=== PATIENT | female | born 1980 | race Caucasian/White ===

== ENCOUNTER 2018-01-04 09:09 | Inpatient (IN) | payer MEDICARE, MEDICAID ==
[~2018-01-04] VITALS: Ht 160 cm; Wt 102.1 kg
[~2018-01-04 09:09] MED LIST: ADULT LOW DOSE81 MG PO; ATIVAN1 MG PO; ATORVASTATIN CA40 MG PO; EFFIENT10 MG PO; FISH OIL 1,0001 EACH PO; FISH OIL 1,001000 M2 PO; IMDUR 60 MG TAB60 M1 PO; LASIX 20 MG TAB20 MG PO; LIPITOR10 MG PO; LISINOPRIL-HCT1 EAC1 PO; LISINOPRIL2.5 M1 PO; LISINOPRIL2.5 MG PO; LOPRESSOR25 PO; METFORMIN HCL500 MG PO; NITROGLYCERIN0.4 MG SUBLING; PRAZOSIN 1 MG CA1 M1 PO; PROZAC20 MG PO; RANEXA1000 MG PO; RANEXA500 MG PO; TOPROL XL25 MG PO; TYLENOL EXTRA500 MG PO; VENTOLIN HFA 1818 GM INH; WOMENS STOOL S100 MG PO; ZESTORETIC 20-1 EACH PO; ZETIA10 MG PO; ZOLOFT50 MG PO
[2018-01-04 11:30] VITALS: BP 101/66
[2018-01-04] MEDS ORDERED: BUSPIRONE HCL10 MG PO (11:55)
[2018-01-04] MEDS ORDERED: CARDIZEM CD120 MG PO (11:56)
[2018-01-04] MEDS ORDERED: CLONAZEPAM 0.50.5 M1 PO (11:56)
[2018-01-04] MEDS ORDERED: LEXAPRO5 MG PO (11:57)
[2018-01-04] MEDS ORDERED: RANEXA500 MG PO (11:58)
[2018-01-04] MEDS ORDERED: OMEPRAZOLE40 MG PO (11:58)
--- NOTE | 2018-01-04 15:32 | NUR ---
PT. ARRIVED AT 1130 VIA AMBULANCE. PT A/OX4, VSS, MONITOR PLACED TRACING SB. PT. DENIES CURRENT PAIN/SOB/N/V. ON RA @ 99%. FULL ASSESSMENT AND ADMISSION PROCESS COMPLETED. DR. SHAH UP TO UNIT TO SEE PT. HOME MED REC. COMPLETED. PT. ORIENTED TO ROOM/PROCEDURES. CALL LIGHT IN REACH, WILL CONTINUE WITH PLAN OF CARE.
[2018-01-04 16:24] VITALS: BP 97/61
--- NOTE | 2018-01-04 16:25 | NUR ---
AT APPROX. 1550 PT. REPORTED CP 10/12. BLOOD PRESSURE 97/61 (UNABLE TO GIVEN NITRO). EKG OBTAINED, WITH NO CHANGES NOTED. DR. PABLO LIN [facility], AWAITING CALL BACK.
--- NOTE | 2018-01-04 19:42 | NUR ---
PT C/O CHEST PAIN X [address] SHAH NOTIFIED AND NEW ORDERS RECEIVED. PAIN WAS ALEVIATED BY IV MORPHINE. PT. HAS REMAINED IN SR. HOURLY ROUNDING COMPLETED THROUGH OUT THE DAY FOR PT. SAFETY.
[2018-01-04 20:00] VITALS: BP 105/59
[2018-01-05] VITALS: BP 109/48
[2018-01-05 04:00] VITALS: BP 111/52
--- NOTE | 2018-01-05 05:41 | NUR ---
PATIENT RESTED IN BED, NO ACUTE CHANGES. PATIENT DID NOT SHOW SIGNS OF DISTRESS. PATIENT DID NOT COMPAIN OF CHEST PAIN. HOURLY ROUNDING OBSERVED, CALL LIGHT WITHIN REACH.
[2018-01-05 08:30] VITALS: BP 111/57
--- NOTE | 2018-01-05 09:01 | NUR ---
ASSUMED PT. CARE AND RECEIVED REPORT AT 0730. PT A/OX4, VSS, MONITOR ON TRACING SB. PT. DENIES CURRENT PAIN/SOB. STATES SHE HAD AN UNEVENTFUL EVENING AND SLEPT WELL. CALL LIGHT IN REACH, WILL CONTINUE WITH PLAN OF CARE.
[2018-01-05 12:05] VITALS: BP 136/68
--- NOTE | 2018-01-05 14:46 | EKG ---
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 : 1980 Requested By: Pepe Gottlieb Order Number: [id number] Reading MD: Pepe Gottlieb Measurements Intervals [place] Rate: 56 P: 33 [place]: 151 QRS: -3 QRSD: 108 T: 36 QT: 443 QTc: 428 Interpretive Statements Sinus bradycardia Abnormal R-wave progression, early transition Probable left ventricular hypertrophy Compared to ECG 06/13/2017 03:03:22 No significant changes Electronically Signed On 01-05-2018 14:46:37 CDT by Pepe Gottlieb [email or web address] <ELECTRONICALLY SIGNED> By: Pepe Gottlieb MD, [facility] 01/05/18 1446 1552 1552 Pepe Gottlieb MD, [facility] /EPI
[2018-01-05 16:05] VITALS: BP 93/42
--- NOTE | 2018-01-05 16:18 | H ---
[place] [address] HISTORY AND PHYSICAL Name: GEORGE JUAREZ Room: [address] ADM IN M.R.#: [id number] Admission: 01/04/18 Attend Phys: Pepe Gottlieb MD, F Discharge: Date of : 82 Report #: [id number] THIS REPORT FOR: //name// CC: Pepe Gottlieb [facility] physician/PCP DATE OF SERVICE: 01/04/2018 HISTORY OF PRESENT ILLNESS: The patient is a 37-year-old single white female who I was asked to see in the hospital today after she complained of palpitations. The patient has an extensive past medical history. She has had cardiac complaints since she was in her 20s. The patient apparently was diagnosed with a cardiomyopathy years ago. She also has a history of a rapid heartbeat. She has worn a monitor in the past. She does note on one occasion, she was given adenosine in the Emergency Room in [place], [place] and the monitor to her was actually given by a anthropologist at [place]. Recently, she notes only occasional skipped heartbeat, but no prolonged palpitations, syncope. She is not very active at this time. She also has a history of coronary artery disease. Dr. Brown actually saw her back in 04/2014. She was found to have a 90% narrowing of the mid LAD, 70% ostial narrowing of the ramus branch, 90% narrowing in the nondominant right coronary artery. It is felt that she should be considered for bypass surgery. However, the patient was transferred to [facility] and decided to perform stenting rather than bypass surgery. The patient was readmitted in 04/2015 with chest pain. She had had stents placed in the proximal and mid LAD, in the ostium of the LAD and placed on Effient. Ejection fraction was normal. Repeat heart catheterization in 07/2014 showed the stent to be widely patent. The right coronary was nondominant, had a 90% mid stenosis and medical therapy was recommended. Her last heart catheterization was in 06/2017. This was performed by Dr. Menezes. An Angio-Seal was placed at the end of the procedure. She was found to have diffuse disease in the LAD, circumflex as well as a stenosis of the nondominant right coronary artery, ejection fraction 65%. She underwent FFR of the LAD, which is only 0.61. She then had an additional drug-eluting stent placed in the LAD. She actually had 3 stents placed in the LAD. Recently, she has been having occasional chest pain. It is not necessarily related to meals or exertion. She actually went to the Emergency Room last night in [place] and was admitted overnight. Today, she was transferred to [place] for further evaluation. She does get short of breath with exertion. She has had no significant edema. She has had no fever or bleeding. PAST MEDICAL HISTORY: Significant for carpal tunnel surgery, . She has had a uterine ablation, so she no longer has periods. She has a history of hypertension, diabetes, hyperlipidemia. MEDICATIONS: Consist of aspirin, Lipitor, BuSpar, clonazepam, Lexapro, Zetia, Imdur, metformin, omeprazole, Effient, Ranexa, [place] [address] HISTORY AND PHYSICAL Name: GEORGE JUAREZ Room: [address] IN M.R.#: [id number] Admission: 01/04/18 Attend Phys: Pepe Gottlieb MD, F Discharge: Date of : 82 Report #: [id number] ALLERGIES: SHE HAS A PREVIOUS INTOLERANCE TO PHENERGAN. FAMILY HISTORY: Her father had a pacemaker. SOCIAL HISTORY: She is currently engaged. She lives in [place], [place] with her ance and children. She quit smoking in the past. She no longer drinks alcohol at this time. She is no longer working at this time because of heart disease. REVIEW OF SYSTEMS: She was told she had a TIA in the past. She has had a history of asthma as a child. She has had no history of peptic ulcer disease, liver disease, kidney disease, or cancer. She sees a psychiatrist. No chronic skin condition. PHYSICAL EXAMINATION: GENERAL: Revealed a middle-aged female who appeared in no distress. VITAL SIGNS: She had a blood pressure of 110/70, pulse 70. HEENT: Mucous membranes are moist. NECK: Veins do not appear distended. No carotid bruits. HEENT: She was anicteric, conjunctivae pink. NECK: Supple. CHEST: Clear to auscultation. CARDIOVASCULAR: Regular rate and rhythm. ABDOMEN: Obese, soft, nontender. EXTREMITIES: Had no edema. Dorsalis pedis pulse 2+ bilaterally. SKIN: Warm, dry. NEUROLOGIC: Nonfocal. Her workup done in [place], [place] last night included an ECG that showed sinus rhythm without ST or T-wave change. LABORATORY WORK: Included sodium 141, BUN 21, troponin 0.03, cholesterol 123, hemoglobin 12.4. IMPRESSION AND RECOMMENDATIONS: 1. Coronary artery disease. The patient has multiple stents and diffuse coronary artery disease. The patient has occasional angina. I would recommend nuclear stress testing to look for ischemia. 2. Hypertension. Appears controlled at this time. 3. Diabetes. 4. Hyperlipidemia. The patient is on a statin drug. 5. History of bipolar disorder. The patient followed by Psychiatry. [address] [place] [address] HISTORY AND PHYSICAL Name: GEORGE JUAREZ Room: [address] IN [facility].#: [id number] Admission: 01/04/18 Attend Phys: Pepe Gottlieb MD, F Discharge: Date of : 82 Report #: [id number] 6. Previous tobacco abuse. 7. Obesity. The patient is 5 feet 3 inches and weighs 218 pounds. <ELECTRONICALLY SIGNED> By: Pepe Gottlieb MD, [facility] 01/05/18 1618 1211 1318David Casimiro Gottlieb MD, FAC /nt
--- NOTE | 2018-01-05 16:43 | NUR ---
PT. TEARFUL, REQUESTING HER PRN KLONIPIN, DOSE GIVEN EARLY PER REQUEST. PT. STATES BOYFRIEND HAD TO LEAVE FOR WORK, AND SHE IS JUST FINDING IT HARD TO STAY HERE ALONE. WILL CONTINUE TO MONITOR.
--- NOTE | 2018-01-05 19:46 | NUR ---
NO COMPLAINTS OF CP THIS SHIFT. UP AD LIBERTY AND AMBULATED UNIT. NPO STATUS AT MIDNIGHT, PT. AWARE. HOURLY ROUNDING COMPLETED THROUGH OUT THE DAY FOR PT. SAFETY.
[2018-01-05 20:00] VITALS: BP 104/64
[2018-01-06] VITALS (7 sets, daily range): BP systolic 94–149; BP diastolic 41–84
--- NOTE | 2018-01-06 03:23 | NUR ---
PATIENT RESTED IN BED. NO ACUTE CHANGES, PATIENT DID NOT SHOW SIGNS OF DISTRESS. NO COMPLAINTS OF CHEST PAIN, PATIENT IS NPO FOR STRESS TEST. FALL PRECAUTIONS IN PLACE, HOULRY ROUNDING OBSERVED, CALL LIGHT WTIHIN REACH.
--- NOTE | 2018-01-06 08:30 | NUR ---
ASSUMED PT. CARE AND RECEIVED REPORT AT 0730. PT A/OX4, VSS, MONITOR ON TRACING SB. PT. DENIES CP TODAY OR THROUGH THE NIGHT. FULL ASSESSMENT COMPLETED, REFER TO CHARTING. PT. EXPRESSES FRUSTRATION WITH STRESS TESTING TODAY, FEELS LIKE DR. SHAH DID NOT LISTEN TO HER OVER THE WEEKEND. DISCUSSED WITH VANESSA ACOSTA RN, SHE WILL DISCUSS WITH DR. PRAJAPATI. HOLDING OFF ON STRESS TEST AT THIS TIME. CALL LIGHT IN REACH, WILL CONTINUE WITH PLAN OF CARE.
--- NOTE | 2018-01-06 09:30 | NUR ---
DR. PRAJAPATI INTO SEE PT. PLAN TO CONTINUE WITH STRESS TEST TODAY AND PROBABLE CATH TOMORROW. PT. AGREEABLE.
--- NOTE | 2018-01-06 13:42 | NUR ---
MET WITH PT TO DISCUSS HOME SITUATION/DC PLANNING. PT LIVES WITH BLAKE, CHILDREN AND GRANDSON. SHE IS INDEPENDENT AND ACTIVE. USES NO EQUIPMENT. PT DOESN'T HAVE A DR BUT PLANS TO LOOK FOR ONE IN THE [facility], ENCOURAGED HER TO CONTACT THE HOSPITAL THERE. PT ASKED QUESTIONS ABOUT HER MEDICARE, STATED DIDN'T HAVE A CARD AND NOT SURE HOW IT ALL WORKED. GAVE HER WEBSITE AND NUMBER TO CONTACT FOR INFO. DENIES OTHER DC NEEDS. WILL FOLLOW
[2018-01-06 16:57] LABS: CALCIUM 8.6 mg/dL (8.5-10.1); CREATININE 0.8 mg/dL (0.6-1.3); POTASSIUM 4.1 mmol/L (3.5-5.1)
[2018-01-07] VITALS (21 sets, daily range): BP systolic 90–138; BP diastolic 38–76
--- NOTE | 2018-01-07 05:26 | NUR ---
PATIENT RESTING IN BED. NO ACUTE CHANGES, PATIENT DID NOT SHOW SIGNS OF DISTRESS. PATIENT IS NPO FOR CATH. IV ATTEMPTS FAIL FOR 18 GAUDE, CHARGE NURSE NOTIFIED. FALL PRECAUTONS IN PLACE, CALL LIGHT WITHIN REACH, HOURLY ROUNDING OBSERVED.
[2018-01-07 05:59] LABS: APTT 26.2 Seconds (25.0-31.3); PROTIME 9.5 Seconds (9.20-11.50)
[2018-01-07 06:17] LABS: CHOLESTEROL 137 mg/dL (<200); HDL CHOLESTEROL 37 mg/dL (>40); LDL CHOLESTEROL 57 mg/dL (<100); TC:HDL 3.7 Ratio (Not establshd); TRIGLYCERIDE 219 mg/dL (<150); VLDL 44 mg/dL (<40)
[2018-01-07 06:20] LABS: SERUM ASSESSMENT Slight Lipemia
[2018-01-07 06:35] LABS: CALCIUM 8.5 mg/dL (8.5-10.1); CREATININE 0.8 mg/dL (0.6-1.3); POTASSIUM 4.4 mmol/L (3.5-5.1)
--- NOTE | 2018-01-07 11:03 | NUR ---
PATIENT TAKEN OFF UNIT FOR CARDIAC CATH AT THIS TIME.
--- NOTE | 2018-01-07 14:11 | EKG ---
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 01/07/18 1411 1310 1310 Gerber Menezes MD, [facility] /EPI
--- NOTE | 2018-01-07 14:13 | NUR ---
PATIENT RETURNED TO ROOM AT 1400 FROM CARDIAC CATH PROCEDURE. VITAL SIGNS STABLE. CATH SITE LEFT GROIN. DRESSING CLEAN DRY INTACT. SOFT TO PALPATION. PATIENT STATES SITE IS TENDER. HAS BEEN INSTRUCTED TO BE ON BEDREST AND NOT TO MOVE HER LEFT LOWER EXTREMITY FOR 6 HOURS. STATES UNDERSTANDING. NURSING WILL CONTINUE TO MONITOR.
--- NOTE | 2018-01-07 14:38 | CARD ---
[address] [address] CARDIAC CATH REPORT Name: GEORGE JUAREZ Room: 229 ADM IN ..#: [id number] Admission: 01/04/18 Attend Phys: Pepe Gottlieb MD, F Discharge: Date of : 82 Report #: [id number] THIS REPORT FOR: //name// APPROVED REPORT Study performed: 01/07/2018 10:58:43 Patient Details Patient Status: In-Patient Room #: 229 The patient is a 37 year-old female Event Personnel Dr Menezes Procedures Performed Left catheterization left ventriculography and selective coronary arteriography; percutaneous coronary intervention to the mid LAD and first marginal branch of the circumflex Indication Unstable angina , Positive stress test Risk Factors Obesity, Hypercholesterolemia, Diabetes Previous Procedures/Diagnoses Previous PCI Procedure Narrative The patient was brought electively to the Cardiac Catheterization Laboratory and was prepped and draped in a sterile manner. The left femoral was infiltrated with 1% Lidocaine subcutaneous anesthesia. A 6 Lithuanian sheath sheath was inserted into the left femoral artery. Coronary angiography was performed using coronary diagnostic catheters. The right coronary system was accessed and visualized with a Diagnostic catheter. The left coronary system was accessed and visualized with a Diagnostic catheter. The left ventricle was accessed and visualized with a Diagnostic catheter. Left ventricular/Aortic Valve gradient assessed via catheter pullback. Left ventriculogram was performed in BARNETT projection. Pre-demployment femoral angiogram was performed . Closure device was deployed with a 6 Fr Mynx. There was no hematoma. Coronary Angiography The patient's coronary anatomy is left dominant. [address] [address] CARDIAC CATH REPORT Name: GEORGE JUAREZN Room: [address] IN M.R.#: [id number] Admission: 01/04/18 Attend Phys: Pepe Gottlieb MD, F Discharge: Date of : 82 Report #: [id number] Diagnostic Cath Left Main 0% narrowing LAD 75% mid LAD in-stent stenosis Circumflex 80% tubular narrowing of the first marginal branch of the circumflex; there is 30% ostial circumflex narrowing Right Coronary Small nondominant vessel with 50% ostial narrowing Left Ventriculography The left ventricle is normal in size with normal contractility. The left ventricular ejection fraction is estimated to be 60%. Left ventricular wall motion abnormalities are present. There is no mitral insufficiency. Subtle apical hypokinesis is noted Hemodynamics The aortic pressure is 120/70 mmHg with a mean of 82 mmHg. The left ventricular end diastolic pressure is 5 mmHg. There was no gradient across the aortic valve upon pullback. PCI Technique Lesion Anticoagulation was achieved with Angiomax. Percutaneous coronary intervention was performed on the mid LAD. The lesion stenosis prior to intervention was 75% with TAVON 3 flow. A 6 Lithuanian XB 3.0 guide Guide Catheter was used to engage the left ostium. A [employer] flex Interventional Guidewire was used to cross the lesion. BALLOON DILATION A Balloon catheter 2.25 x 12 NC trek was inserted and inflated up to 15atm for 10seconds. STENT DEPLOYMENT A drug-eluting stent 2.25x15, 2.25x12 xience Alpine was inserted and inflated up to 10-12atm for 10seconds. Final angiography reveals 0 % stenosis with TAVON 3 flow. PCI Technique Lesion 2 Percutaneous Coronary Intervention was performed on the first marginal branch of the circumflex. The lesion stenosis prior to intervention was 80% with TAVON 3 flow. A 6 Lithuanian XB 3.0 Guide Catheter was used to engage the left ostium. Balloon Dilation A Balloon catheter 2.25 x 12 NC trek was inserted and inflated up to 12atm [place] 10[place] [address] CARDIAC CATH REPORT Name: GEORGE JUAREZ ADELFO Room: [address]#: [id number] Admission: 01/04/18 Attend Phys: Pepe Gottlieb MD, F Discharge: Date of : 82 Report #: [id number] Stent Deployment A drug-eluting stent 2.25 x 18 mm Xience Alpine was inserted and inflated up to 9atm for 10seconds. Final angiography reveals 0 % stenosis with TAVON 3 flow. Conclusion Significant coronary artery disease characterized by the following: A 75% mid LAD in-stent restenosis B 30% ostial circumflex narrowing with 80% narrowing of the first marginal branch, this being a dominant vessel C small nondominant right coronary artery with 50% ostial narrowing #2 normal left ventricular systolic function globally, estimated ejection fraction being 60% with subtle apical hypokinesis #3 normal left-sided hemodynamics study #4 successful percutaneous coronary intervention with deployment of sequential drug-eluting stents at the site of 75% mid LAD in-stent restenosis was 0% residual narrowing and TAVON-3 flow the distal vessel #5 successful percutaneous coronary intervention at the site of 80% first marginal stenosis with 0% residual narrowing following stent deployment and TAVON-3 flow the distal vessel Recommendations Aggressive Medical Therapy Medications Administered Aspirin (any) [place] [address] CARDIAC CATH REPORT Name: GEORGE JUAREZ Room: [address] IN [facility].#: [id number] Admission: 01/04/18 Attend Phys: Pepe Gottlieb MD, F Discharge: Date of : 82 Report #: [id number] Diagnostic Cath Approved by: Gerber Menezes MD Date/Time: 01/07/18 at 1435 hrs. <ELECTRONICALLY SIGNED> By: Gerber Menezes MD, [facility] 01/07/18 1437 1437 1437John Kath Menezes MD, FACC /INF
--- NOTE | 2018-01-07 17:02 | CARDNUC ---
[place] [address] CARDIAC NUCLEAR IMAGING REPORT Name: GEORGE JUAREZN Room: [address] IN [facility]#: [id number] Admission: 01/04/18 Attend Phys: Pepe Gottlieb MD Discharge: Date of : 82 Date of Service: 01/07/18 1702 Report #: [id number] THIS REPORT FOR: //name// APPROVED REPORT Study performed: 01/04/2018 12:26:00 Indication: Chest pain Patient Location: In-Patient Room #: 229 Stress Tech: Phuong Conrad Stress Nurse: Saundra Argueta RN NM Tech:WINSOME Allen Ht: 5 ft 3 in Wt: 225 lbs BSA: 2.03 m2 BMI: 39.85 Medical History Medical History: Diabetes, HTN, Hyperlipidemia, Stroke/TIA, Cardiomyopathy Medications: prasugrel, metoprolol, atrovastatin, diltiazem ezetimibe, isosorbide, ranolazine Allergies: promethazine Cardiac Risk Factors: DM, HTN, Hyperlipidemia, FHX of CAD Previous Cardiac Procedures: PCI Exercise History: Sedentary Meds Held (24 hrs): isdsorbide Pharmacologic Stress Pharmacologic stress test was performed by injecting Regadenoson 0.4 mg IV push over 10-15 seconds immediately followed by the intravenous injection of 38.6 mCi of Tc-99m Sestamibi. Time of stress injection: 1040 Date: 01/06/2018 Time of stress imagin Administration Route: IV Gated Stress SPECT was performed 40 minutes after stress injection. The images were gated to evaluate regional wall motion and calculate left ventricular ejection fraction. Prone imaging was performed. Stress Test Details Stress Test: Pharmacologic stress testing performed using 0.4 mg of regadenoson per 5 mL given IV over 10 seconds. Reason for pharmacologic stress test: [place] [address] CARDIAC NUCLEAR IMAGING REPORT Name: GEORGE JUAREZ ADELFO Room: [address] IN [facility]#: [id number] Admission: 01/04/18 Attend Phys: Pepe Gottlieb MD Discharge: Date of : 82 Date of Service: 01/07/18 1702 Report #: [id number] limitation. HR Resting HR: 50 bpm Max Heart Rate (APMHR): 184 bpm Max HR Achieved: 112 bpm Target HR (85% APMHR): 156 bpm % of APMHR: 60 Recovery HR: 78 bpm BP Resting BP: 120/53 mmHg Max BP: 190/120 mmHg ECG Resting ECG: Sinus Rhythm Stress ECG: Sinus Rhythm ST Change: None Arrhythmia: None Recovery ECG: Sinus Rhythm Recovery ST Change: None Recovery Arrhythmia: None Clinical Reason for Termination: Completed protocol Stress Symptoms: Chest pain Exercise duration: 0 min sec Exercise capacity: 1.0 METs The patient had chest discomfort with Lexiscan infusion suggestive of ischemia. Nurse Comments Patient complained of chest pain post lexiscan injection, rated 4, resolved in recovery. Stress ECG Conclusion The baseline 12-lead electrocardiogram showed sinus rhythm without significant ST or T-wave abnormalities. EKGs obtained during and post Lexiscan infusion showed sinus rhythm with no significant ST or T wave changes when compared to baseline. There were no stress-induced arrhythmias. Study Quality Study: Good Study Data Post stress, the left ventricular ejection was 50%.. [place] [address] CARDIAC NUCLEAR IMAGING REPORT Name: GEORGE JUAREZ Room: [address] IN [facility].#: [id number] Admission: 01/04/18 Attend Phys: Pepe Gottlieb MD Discharge: Date of : 82 Date of Service: 01/07/18 1702 Report #: [id number] Perfusion Images obtained only post stress. These images show a large in size moderate to severe intensity defect involving the anterior wall and the apex. No resting images were obtained for comparison. Wall Motion There is inferior wall and apical hypokinesis. Nuclear Conclusion ECG Findings: negative for ischemia Clinical Findings: positive for ischemia Nuclear Findings: stress images only Left Ventricular Function: abnormal The patient had a stress images without resting images. There are defects to suggest possible ischemia versus infarct. Left ventricular systolic function was not normal. <Conclusion> The baseline 12-lead electrocardiogram showed sinus rhythm without significant ST or T-wave abnormalities. EKGs obtained during and post Lexiscan infusion showed sinus rhythm with no significant ST or T wave changes when compared to baseline. There were no stress-induced arrhythmias. <ELECTRONICALLY SIGNED> By: Sandor Brown MD, FACC 01/07/181701 01 01 Sandor Brown MD, FACC /INF
--- NOTE | 2018-01-07 17:37 | NUR ---
PATIENT IS ALERT AND ORIENTED APPROPRIATELY. CATH SITE TO LEFT GROIN HAS MINIMAL SHADOWING, SOFT TO PALPATION. VITAL SIGNS STABLE. COMPLAINED OF PAIN GIVEN TYLENOL, SEE EMAR FOR DOCUMENTATION. DENIES OTHER NEEDS AT THIS TIME. REMAINS ON BEDREST. NURSING WILL CONTINUE TO MONITOR.
--- NOTE | 2018-01-07 21:22 | NUR ---
PATIENT COMPLAIN OF CHEST PAIN, 3 OUT OF 10 ACHING. PAIN MEDICATION GIVE, CHEST PAIN COMPLETELY RESOLVED.
[2018-01-08 04:00] VITALS: BP 109/47
--- NOTE | 2018-01-08 05:07 | NUR ---
PATIENT RESTED IN BED, NO ACUTE CHANGES. PATIENT DID NOT SHOW SIGNS OF DISTRESS OR BLEEDING. FALL PRECAUTIONS IN PLACE, CALL LIGHT WITH REACH. PEDAL PLUSES ARE PALPABLE. VITALS ARE STABLE.
[2018-01-08 05:28] LABS: HEMATOCRIT 33.5 % (37.0-47.0); HEMOGLOBIN 11.6 gm/dL (12.0-15.0); MCHC 34.5 g/dL (28.0-37.0); MCV 92.9 fL (80.0-100.0); MPV 7.8 fl. (7.2-11.1); RBC 3.61 mil/uL (4.20-5.00); RDW-CV 13.5 % (10.5-14.5); WBC 7.9 thou/uL (4.0-11.0)
[2018-01-08 05:41] LABS: ALBUMIN 2.9 g/dL (3.4-5.0); ALKALINE PHOSPHATASE 66 U/L (46-116); ANION GAP 9 mmol/L (7-16); BUN 11 mg/dL (7-18); CALCIUM 7.9 mg/dL (8.5-10.1); CHLORIDE 108 mmol/L (98-107); CO2 25 mmol/L (21-32); CREATININE 0.8 mg/dL (0.6-1.3); GLUCOSE 113 mg/dL (70-99); POTASSIUM 4.4 mmol/L (3.5-5.1); SGOT 14 U/L (15-37); SGPT 24 U/L (30-65); SODIUM 142 mmol/L (136-145); TOTAL BILIRUBIN 0.3 mg/dL (<0.1-1.0); TOTAL PROTEIN 5.9 g/dL (6.4-8.2); TROPONIN-I LEVEL <0.06 ng/mL (<0.06)
[2018-01-08 07:52] VITALS: BP 128/58
[2018-01-08 10:44] VITALS: BP 138/73
[2018-01-08 12:00] VITALS: BP 117/72
--- NOTE | 2018-01-08 13:07 | EKG ---
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 : 1980 Requested By: Pepe Gottlieb Order Number: [id number] Reading MD: Gerber Menezes Measurements Intervals [place] Rate: 56 P: 31 SD: 138 QRS: -7 QRSD: 113 T: 32 QT: 469 QTc: 453 Interpretive Statements Sinus rhythm Abnormal R-wave progression, early transition Probable left ventricular hypertrophy Compared to ECG 01/07/2018 13:10:09 Sinus bradycardia no longer present Electronically Signed On 01-08-2018 13:06:52 CDT by Gerber Menezes [email or web address] <ELECTRONICALLY SIGNED> By: Gerber Menezes MD, [facility] 01/08/18 1306 24 24 Gerber Menezse MD, [facility] /EPI
--- NOTE | 2018-01-08 13:12 | EKG ---
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1980 Requested By: Greber Menezes Order Number: [id number] Dixon MD: Gerber Menezes Measurements Intervals [place] Rate: 61 P: 30 CO: 152 QRS: -10 QRSD: 106 T: 33 QT: 469 QTc: 473 Interpretive Statements Sinus rhythm Abnormal R-wave progression, early transition Left ventricular hypertrophy Compared to ECG 01/07/2018 13:10:09 Sinus bradycardia no longer present Electronically Signed On 01-08-2018 13:12:46 CDT by Gerber Menezes [email or web address] <ELECTRONICALLY SIGNED> By: Gerber Menezes MD, [facility] 01/08/18 1312 0852 0852 Gerber Menezes MD, [facility] /EPI
--- NOTE | 2018-01-08 13:16 | NUR ---
ASSUMED CARE OF PATIENT AFTER REPORT THIS MORNING. PATIENT AWAKE, ALERT, AND ORIENTED APPROPRIATELY. PHYSICAL ASSESSMENT COMPLETED AND CHARTED. COMPLAINED OF PAIN. GIVEN PRN AND SCHEDULED MEDICATIONS, SEE EMAR FOR DOCUMENTATION. VITAL SIGNS STABLE. OXYGEN SATURATION WITHIN NORMAL LIMITS ON ROOM AIR. PATIENT IS UP AD LIBERTY. SHOWERED TODAY. RECEIVED ORDERS TO DISCHARGE PATIENT. DISCHARGE PAPERWORK COMPLETED AND DISCUSSED WITH PATIENT. COPY GIVEN TO PATIENT TO TAKE HOME. DISCUSSED FOLLOW UP APPOINTMENTS WITH PRIMARY CARE PHYSICIAN AND DR. PRAJAPATI. IV DICONTINUED. HEART MONITOR RETURNED TO NURSE'S STATION. PATIENT CURRENTLY WAITING ON RIDE. NURSING WILL CONTINUE TO MONITOR UNTIL DISCHARGE.
--- NOTE | 2018-01-08 13:32 | NUR ---
CONTINUE TO FOLLOW, MET WITH PT. STATES READY TO GO HOME. DENIES NEEDS
--- NOTE | 2018-01-08 14:24 | NUR ---
PATIENT DISCHARGED AT THIS TIME WITH . AMBULATED TO FRONT DOOR BY BRETT PETERSON.
--- NOTE | 2018-01-10 13:11 | D ---
[address] [address] DISCHARGE SUMMARY Name: GEORGE JUAREZ Room: [address] IN M.R.#: [id number] Admission: 01/04/18 Attend Phys: Pepe Gottlieb MD, F Discharge: 01/08/18 Date of : 82 Report #: [id number] THIS REPORT FOR: //name// CC: Pepe Gottlieb [facility] physician/PCP Sandor Brown MD DATE OF SERVICE: 01/08/2018 LOCATION: Room 229. FINAL DISCHARGE DIAGNOSES: 1. Unstable angina. 2. Coronary artery disease. 3. Status post multiple percutaneous coronary interventions, most recently to the LAD and circumflex on 01/07/2018. 4. Hypertension. 5. Hyperlipidemia. 6. Diabetes mellitus. 7. History of bipolar disorder. 8. Prior tobacco use. 9. Obesity. PROCEDURES: 01/07/2018 -- left heart catheterization, left ventriculography, selective coronary arteriotomy and percutaneous coronary intervention to the LAD and circumflex. The patient is a very pleasant 37-year-old female with multiple risk factors for coronary disease including hypertension, hyperlipidemia and diabetes. She has a history of multiple prior stents to the LAD. She presents with recurrent angina, typical of her prior ischemic discomfort following an unstable pattern. She was admitted and there was no enzymatic evidence for acute myocardial injury. In this context, she underwent cardiac catheterization on 01/07/2018 which revealed 75% mid LAD in-stent restenosis with 80% tubular narrowing in the first marginal branch of the circumflex. I deployed 2 drug-eluting stents in the mid LAD with 0% residual narrowing and 1 drug-eluting stent in the circumflex with 0% residual narrowing. The patient did well post-procedurally and ambulated in the hallways without difficulty. There was good hemostasis at the left femoral site of catheterization. Laboratory data on 01/08 revealed sodium 142, potassium 4.4, BUN 11, creatinine 0.8. Hemoglobin 11.6; white blood cell count 7900; with 227,000 platelets. She had no recurrent discomfort and ambulated [place] [address] DISCHARGE SUMMARY Name: GEORGE JUAREZ ADELFO Room: [address]#: [id number] Admission: 01/04/18 Attend Phys: Pepe Gottlieb MD, F Discharge: 01/08/18 Date of : 82 Report #: [id number]. The patient was discharged to home on 01/08/2018 on the following medications: Aspirin 81 mg daily, atorvastatin 80 mg at bedtime, buspirone 10 mg b.i.d., diltiazem extended release 120 mg daily, Lexapro 10 mg daily, Zetia 10 mg daily, furosemide 20 mg daily, Imdur 120 mg daily, metformin 1000 mg b.i.d. to be resumed on 01/09, metoprolol succinate 100 mg b.i.d., omeprazole 40 mg daily, prasugrel or Effient 10 mg daily with an additional 10 mg given periprocedurally, ranolazine 500 mg b.i.d. She is scheduled to return to see me on 01/29/2018 and her continuing care will be with Dr. Brown. Thus, the patient is discharged to home in stable condition on the aforementioned medications with followup as iterated above. <ELECTRONICALLY SIGNED> By: Gerber Menezes MD, [facility] 01/10/18 1311 0930 [id number] Menezes MD, [facility] /nt
== END 2018-01-08 14:30 | disposition home or self-care (01) | DRG 247 ==
LOC: M.2W 09:09
PROVIDERS: Internal Medicine; ADMIT Internal Medicine Cardiovascular Disease
DX: T82.855A Stenosis of coronary artery stent, initial encounter (principal); I25.110 Atherosclerotic heart disease of native coronary artery with unstable angina pectoris; E66.9 Obesity, unspecified; E78.00 Pure hypercholesterolemia, unspecified; E11.9 Type 2 diabetes mellitus without complications; I10 Essential (primary) hypertension; E78.5 Hyperlipidemia, unspecified; F31.9 Bipolar disorder, unspecified; Y83.8 Other surgical procedures as the cause of abnormal reaction of the patient, or of later complication, without mention of misadventure at the time of the procedure; Z87.891 Personal history of nicotine dependence; Z95.1 Presence of aortocoronary bypass graft; Z68.39 Body mass index [BMI] 39.0-39.9, adult; Z95.5 Presence of coronary angioplasty implant and graft; Z88.8 Allergy status to other drugs, medicaments and biological substances; Z79.82 Long term (current) use of aspirin; Z79.899 Other long term (current) drug therapy; Z82.49 Family history of ischemic heart disease and other diseases of the circulatory system; Y92.89 Other specified places as the place of occurrence of the external cause

== ENCOUNTER 2018-02-13 08:42 | Outpatient (CLI) | payer MEDICARE, MEDICAID ==
[~2018-02-13] VITALS: Ht 160 cm; Wt 101.2 kg
[2018-02-13] VITALS (7 sets, daily range): BP systolic 113–137; BP diastolic 62–77
[~2018-02-13 08:42] MED LIST changes: +BUSPIRONE HCL10 MG PO; +CARDIZEM CD120 MG PO; +CLONAZEPAM 0.50.5 M1 PO; +LEXAPRO5 MG PO; +OMEPRAZOLE40 MG PO
[2018-02-13] MEDS ORDERED: IMDUR 60 MG TAB60 M1 PO (09:12)
[2018-02-13 09:53] LABS: ANION GAP 5 mmol/L (7-16); BUN 12 mg/dL (7-18); CALCIUM 9.2 mg/dL (8.5-10.1); CHLORIDE 106 mmol/L (98-107); CO2 26 mmol/L (21-32); CREATININE 0.7 mg/dL (0.6-1.3); GLUCOSE 126 mg/dL (70-99); POTASSIUM 4.2 mmol/L (3.5-5.1); SODIUM 137 mmol/L (136-145)
[2018-02-13 09:59] LABS: ALBUMIN 3.5 g/dL (3.4-5.0); ALKALINE PHOSPHATASE 75 U/L (46-116); CHOLESTEROL 146 mg/dL (<200); HDL CHOLESTEROL 38 mg/dL (>40); LDL CHOLESTEROL 56 mg/dL (<100); SGOT 36 U/L (15-37); SGPT 55 U/L (30-65); TC:HDL 3.8 Ratio (Not establshd); TOTAL BILIRUBIN 0.3 mg/dL (<0.1-1.0); TOTAL PROTEIN 7.5 g/dL (6.4-8.2); TRIGLYCERIDE 260 mg/dL (<150); VLDL 52 mg/dL (<40)
[2018-02-13 10:00] LABS: HEMOGLOBIN 12.7 gm/dL (12.0-15.0); MCH 31.2 pg (26.0-34.0); MCHC 33.5 g/dL (28.0-37.0); MCV 93.2 fL (80.0-100.0); MPV 8.2 fl. (7.2-11.1); RBC 4.08 mil/uL (4.20-5.00); RDW-CV 13.3 % (10.5-14.5)
[2018-02-13 10:01] LABS: APTT 26.3 Seconds (25.0-31.3); PROTIME 9.5 Seconds (9.20-11.50)
[2018-02-13 10:07] LABS: SERUM ASSESSMENT Clear
--- NOTE | 2018-02-13 13:10 | EKG ---
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1980 Requested By: Gerber Menezes Order Number: [id number] Reading MD: Gerber Menezes Measurements Intervals [place] Rate: 49 P: 36 AK: 174 QRS: -4 QRSD: 107 T: 35 QT: 501 QTc: 453 Interpretive Statements Sinus bradycardia Abnormal R-wave progression, early transition Left ventricular hypertrophy Compared to ECG 01/08/2018 08:52:07 Sinus rhythm no longer present Electronically Signed On 02-13-2018 13:10:37 CDT by Gerber Menezes [email or web address] <ELECTRONICALLY SIGNED> By: Gerber Menezes MD, [facility] 02/13/18 1310 0952 0952 Gerber Menezes MD, [facility] /EPI
--- NOTE | 2018-02-13 13:22 | CARD ---
[address] [address] CARDIAC CATH REPORT Name: GEORGE JUAREZ Room: [address] [place]#: [id number] Admission: 02/13/18 Attend Phys: Gerber Menezes MD, Discharge: Date of : 82 Report #: [id number] THIS REPORT FOR: //name// APPROVED REPORT Study performed: 02/13/2018 09:01:19 Patient Details Patient Status: Out-Patient Room #: The patient is a 37 year-old female Event Personnel Gerber Menezes Inside Trucker, Madison Almazan RN RN, Marisa Richter RTR Monitor, Dipika Miranda RTR Scrub Procedures Performed Art Access - L femoral artery* , Left Heart Catheterization Indication Chest pain Risk Factors Obesity, Family History, Hypercholesterolemia, Hypertension Previous Procedures/Diagnoses Previous PCI Procedure Narrative The patient was brought electively to the Cardiac Catheterization Laboratory and was prepped and draped in a sterile manner. The left femoral was infiltrated with 2% Lidocaine subcutaneous anesthesia. A Dexter 6 FR sheath was inserted into the left femoral artery. Coronary angiography was performed using coronary diagnostic catheters. The right coronary system was accessed and visualized with a 6FR JR4 catheter. The left coronary system was accessed and visualized with a 6FR JL4 catheter. The left ventricle was accessed and visualized with a 6FR PIGTAIL ANGLED catheter. Left ventricular/Aortic Valve gradient assessed via catheter pullback. Left ventriculogram was performed in BARNETT projection. Pre-demployment femoral angiogram was performed . Closure device was deployed with a 6 Fr Mynx. Hemostasis was obtained with manual pressure following sheath removal without any complications. The patient tolerated the procedure well and there were no complications associated with the procedure. [place] [address] CARDIAC CATH REPORT Name: GEORGE JUAREZ Room: [address]#: [id number] Admission: 02/13/18 Attend Phys: Gerber Menezes MD, Discharge: Date of : 82 Report #: [id number] Intraoperative Conscious Sedation Sedation start time: 10:24 Case end Time: 11:00 Fentanyl 75 mcg Fluoro Time: 4.5 minutes Dose: DAP 80302 cGycm2 755 mGy Contrast Type and Amount: Visipaque 125 ml Coronary Angiography The patient's coronary anatomy is left dominant. Diagnostic Cath Left Main 0 Percent narrowing LAD Widely patent proximal and mid LAD stents with diffuse 50% tapering of the apical LAD which remitted after administration of intracoronary nitroglycerin Circumflex 40% mid circumflex narrowing with widely patent first marginal stent. There was tapering of the marginal branch distal to the stent which remitted after administration of intracoronary nitroglycerin Right Coronary Small nondominant vessel with 50% mid vessel narrowing Left Ventriculography The left ventricle is normal in size with normal contractility. The left ventricular ejection fraction is estimated to be 60%. Left ventricular wall motion abnormalities are not present. There is no mitral insufficiency. Hemodynamics The aortic pressure is 144/71 mmHg with a mean of 96 mmHg. The left ventricular pressure is 137/0 mmHg with a mean of mmHg. The left ventricular end diastolic pressure is 17 mmHg. Pullback from the left ventricle to the aorta revealed no gradient across the aortic valve. Conclusion #1 coronary artery disease characterized by the following: A widely patent proximal and mid LAD stents with diffuse tapered narrowing of the distal LAD which remitted after administration of intracoronary nitroglycerin B dominant circumflex with a widely patent [place] [address] CARDIAC CATH REPORT Name: GEORGE JUAREZ Room: [address] [place]#: [id number] Admission: 02/13/18 Attend Phys: Gerber Menezes MD, Discharge: Date of : 82 Report #: [id number] 40% mid vessel narrowing. There was tapering of the distal marginal branch beyond the stent which remitted after administration of intracoronary nitroglycerin C small nondominant right coronary artery with 50% mid vessel narrowing #2 normal left ventricular systolic function, estimated ejection fraction being 60% #3 modest elevation of left ventricular end-diastolic pressure at rest Recommendations Cardiac Risk Reduction Program Aggressive Medical Therapy Diagnostic Cath Approved by: Gerber Menezes MD Date/Time: 02/13/18 at 1321 hrs. <ELECTRONICALLY SIGNED> By: Gerber Menezes MD, [facility] 02/13/18 1322 1322 1322Gerber Menezes MD, [facility] /INF
--- NOTE | 2018-02-17 11:25 | NUR ---
Attempted to make follow up phone call, no answer, left message with return phone #.
== END 2018-02-13 15:25 | disposition home or self-care (01) ==
LOC: M.CL 08:42 → M.TBA-CV 11:13 → M.CL 15:25
PROVIDERS: Internal Medicine
DX: I25.10 Atherosclerotic heart disease of native coronary artery without angina pectoris (principal); I10 Essential (primary) hypertension; I42.9 Cardiomyopathy, unspecified; J45.909 Unspecified asthma, uncomplicated; E11.9 Type 2 diabetes mellitus without complications; I48.91 Unspecified atrial fibrillation; Z79.01 Long term (current) use of anticoagulants; Z98.890 Other specified postprocedural states; Z98.51 Tubal ligation status; Z79.899 Other long term (current) drug therapy; Z87.891 Personal history of nicotine dependence; Z88.8 Allergy status to other drugs, medicaments and biological substances; Z79.82 Long term (current) use of aspirin

== ENCOUNTER 2018-08-05 02:55 | Inpatient (IN) | payer MEDICARE, MEDICAID ==
[~2018-08-05] VITALS: Ht 160 cm; Wt 104.8 kg
[2018-08-05 05:10] VITALS: BP 126/79
[2018-08-05 08:00] VITALS: BP 125/74
[2018-08-05 09:56] LABS: ABSOLUTE EOSINOPHILS 0.1 thou/uL (0.0-0.7); ABSOLUTE LYMPHOCYTES 1.9 thou/uL (0.8-5.3); ABSOLUTE MONOCYTES 0.6 thou/uL (0.0-1.2); ABSOLUTE NEUTROPHILS 4.8 thou/uL (1.6-8.1); BASOPHILS 0.3 %; EOSINOPHILS 1.1 %; HEMATOCRIT 38.7 % (37.0-47.0); LYMPHOCYTES 25.8 %; MCH 31.1 pg (26.0-34.0); MCHC 33.6 g/dL (28.0-37.0); MCV 92.6 fL (80.0-100.0); MONOCYTES 7.9 %; MPV 7.8 fl. (7.2-11.1); NUCLEATED RBCS 0 /100WBC; PLATELET COUNT* 300 thou/uL (150-400); POLYS 64.9 %; RBC 4.18 mil/uL (4.20-5.00); RDW-CV 13.6 % (10.5-14.5); WBC 7.4 thou/uL (4.0-11.0)
[2018-08-05 10:14] LABS: ALBUMIN 3.4 g/dL (3.4-5.0); ALKALINE PHOSPHATASE 84 U/L (46-116); ANION GAP 11 mmol/L (7-16); BUN 12 mg/dL (7-18); CALCIUM 8.4 mg/dL (8.5-10.1); CHLORIDE 105 mmol/L (98-107); CO2 23 mmol/L (21-32); CREATININE 0.7 mg/dL (0.6-1.3); GLUCOSE 134 mg/dL (70-99); POTASSIUM 4.2 mmol/L (3.5-5.1); SGOT 34 U/L (15-37); SGPT 61 U/L (30-65); SODIUM 139 mmol/L (136-145); TOTAL BILIRUBIN 0.2 mg/dL (<0.1-1.0); TOTAL PROTEIN 7.2 g/dL (6.4-8.2); TROPONIN-I LEVEL <0.06 ng/mL (<0.06)
[2018-08-05 11:30] VITALS: BP 107/76
[2018-08-05 15:39] VITALS: BP 96/49
[2018-08-05 20:00] VITALS: BP 137/80
[2018-08-06] VITALS (15 sets, daily range): BP systolic 109–140; BP diastolic 57–75
[2018-08-06 05:24] LABS: ABSOLUTE EOSINOPHILS 0.1 thou/uL (0.0-0.7); ABSOLUTE LYMPHOCYTES 2.3 thou/uL (0.8-5.3); ABSOLUTE MONOCYTES 0.7 thou/uL (0.0-1.2); ABSOLUTE NEUTROPHILS 4.5 thou/uL (1.6-8.1); BASOPHILS 0.2 %; EOSINOPHILS 1.4 %; HEMOGLOBIN 12.9 gm/dL (12.0-15.0); LYMPHOCYTES 30.2 %; MCH 31.4 pg (26.0-34.0); MCHC 33.8 g/dL (28.0-37.0); MCV 92.9 fL (80.0-100.0); MONOCYTES 9.3 %; MPV 7.7 fl. (7.2-11.1); NUCLEATED RBCS 0 /100WBC; PLATELET COUNT* 274 thou/uL (150-400); POLYS 58.9 %; RBC 4.09 mil/uL (4.20-5.00); RDW-CV 13.6 % (10.5-14.5); WBC 7.7 thou/uL (4.0-11.0)
[2018-08-06 05:34] LABS: CALCIUM 8.6 mg/dL (8.5-10.1); CREATININE 0.8 mg/dL (0.6-1.3); POTASSIUM 4.2 mmol/L (3.5-5.1)
--- NOTE | 2018-08-06 18:21 | CARD ---
[address] [address] CARDIAC CATH REPORT Name: GEORGE JUAREZ Room: [address] IN [facility]#: [id number] Admission: 08/05/18 Attend Phys: Mitchel Ma MD Discharge: 08/06/18 Date of : 82 Report #: [id number] THIS REPORT FOR: //name// APPROVED REPORT Study performed: 08/06/2018 08:31:54 Patient Details Patient Status: In-Patient Room #: The patient is a 38 year-old female Event Personnel Pepe Gottlieb Quality Measurement Specialist, Sindy Daley RN Sew Out Operator, Marisa Richter RTR Scrub, Cortes Bell Monitor Procedures Performed Left Heart Cath w/or w/o Coronaries Indication Chest pain Risk Factors Hypercholesterolemia, Coronary Artery Disease, Diabetes Previous Procedures/Diagnoses Previous PCI Procedure Narrative The patient was brought electively to the Cardiac Catheterization Laboratory and was prepped and draped in a sterile manner. The right femoral was infiltrated with 1% Lidocaine subcutaneous anesthesia. A 6fr Ultimum Sheath sheath was inserted into the right femoral artery. Coronary angiography was performed using coronary diagnostic catheters. The right coronary system was accessed and visualized with a Diagnostic 3DRC catheter. The left coronary system was accessed and visualized with a Diagnostic JL 4 catheter. The left ventricle was accessed and visualized with a Diagnostic Angled Pigtail catheter. Left ventricular/Aortic Valve gradient assessed via catheter pullback. Left ventriculogram was performed in BARNETT projection. Closure device was deployed with a 6 Fr MynxGrip 6/7F. The patient tolerated the procedure well and there were no complications associated with the procedure. There was no hematoma. Intraoperative Conscious Sedation Sedation start time: 9:28 Case end Time: [place] [address] CARDIAC CATH REPORT Name: GEORGE JUAREZ Room: [address]#: [id number] Admission: 08/05/18 Attend Phys: Mitchel Ma MD Discharge: 08/06/18 Date of : 82 Report #: [id number] 9:54 Fentanyl 50 mcg Versed 4 mg Fluoro Time: 3.5 minutes Dose: DAP 36550 cGycm2 794 mGy Contrast Type and Amount: Omnipaque 140 ml Coronary Angiography The patient's coronary anatomy is left dominant. Diagnostic Cath Left Main 0% stenosis LAD long stent in the lad that started proximally and extended to the mid lad had no restenosis. The apical lad beyond the stented portion had a narrow lumen Circumflex 0% stenosis OM2 stent had 0% stenosis Right Coronary small nondominent rca had a mid 60% stenosis Left Ventriculography The left ventricular ejection fraction is estimated to be 45-50%. Left ventricular wall motion abnormalities are present. There is no mitral insufficiency. mild hypokinesis noted of the distal anteroapical wall Hemodynamics The aortic pressure is 139/71 mmHg with a mean of 98 mmHg. The left ventricular pressure is 128/12 mmHg with a mean of mmHg. The left ventricular end diastolic pressure is 15 mmHg. There was no gradient across the aortic valve upon pullback. Pullback from the left ventricle to the aorta revealed no gradient across the aortic valve. Conclusion 1. no restenosis noted of stents in the lad nor circumflex 2. mild LV dysfunction Recommendations Aggressive Medical Therapy <ELECTRONICALLY SIGNED> By: Pepe Gottlieb MD, FACC 08/06/181820 20 Drafa Gottlieb MD, FACC /INF
--- NOTE | 2018-08-07 10:46 | CON ---
[address] [address] CONSULTATION Name: GEORGE JUAREZ Room: [address] IN M.R.#: [id number] Admission: 08/05/18 Attend Phys: Mitchel Ma MD Discharge: 08/06/18 Date of : 82 Report #: [id number] THIS REPORT FOR: //name// CC: Mitchel Ma [facility] physician/PCP DATE OF SERVICE: 08/05/2018 TYPE OF REPORT: Cardiology consultation. HISTORY OF PRESENT ILLNESS: The patient is a 38-year-old single white female who I was asked to see in the hospital today after she complained of chest pain. The patient has an extensive past medical history. She apparently has had a total of 8 coronary stents, primarily placed by Dr. Gerber Menezes. She has been followed by my partner, Dr. Sandor Brown. She initially was presented in April 2004 with chest pain and had abnormal stress test. She underwent a heart catheterization and she is found to have a 90% narrowing of the mid LAD, 70% ostial narrowing of the ramus branch and 90% narrowing of the right coronary artery. She was then transferred to [facility] for consideration of coronary artery bypass surgery. Has decided to proceed with stenting and Dr. Menezes placed a stent in her proximal and mid LAD as well as the ostium of the LAD. She is placed on aspirin and Effient. The patient had a repeat heart catheterization by Dr. Menezes in June 2017. At that time, the LAD had an 80% narrowing, circumflex had 70%, right coronary artery 60% stenosis and ejection fraction 65%. She was given Angiomax and he placed drug-eluting stents in the LAD. She had a repeat heart catheterization in February of this year by Dr. Menezes that showed no significant restenosis of the stents. Ejection fraction was normal. Medical therapy was recommended. She states she did well until recently she has had recurrent chest pain. It is not related to exertion or meals. She has had no coughing or bleeding. It does make her nauseated and short of breath. She has taken nitroglycerin, which seemed to help. However, yesterday she was watching TV, felt a pressure in chest. She went to the Emergency Room [place], [place]. She is felt to be having unstable angina. She was transferred to [place] by ambulance. I was asked to see her for further evaluation and treatment. She notes exertional dyspnea and skipped heartbeat but no syncope. PAST MEDICAL HISTORY: She has had previous uterine ablation, carpal tunnel surgery, tubal ligation, hypertension and diabetes. MEDICATIONS: Consists of Effient, aspirin, Lipitor, buspirone, Lexapro, Zetia, furosemide, Imdur, metformin, metoprolol, omeprazole and Ranexa. FAMILY HISTORY: Heart disease. SOCIAL HISTORY: She lives with her fiance. She has 2 daughters, [place] [address] CONSULTATION Name: GEORGE JUAREZ Room: [address]#: [id number] Admission: 08/05/18 Attend Phys: Mitchel Ma MD Discharge: 08/06/18 Date of : 82 Report #: [id number] [place], [place]. 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 No smoking or alcohol abuse. REVIEW OF SYSTEMS: She apparently had a TIA in the past affecting her speech. She had asthma as a child. She had a peptic ulcer. No liver disease. No kidney disease. No cancer. She wears glasses. She is also overweight, being 5 feet 3 inches and weighing 250 pounds. PHYSICAL EXAMINATION: GENERAL: Revealed a young white female lying in bed. She appeared in no acute distress. VITAL SIGNS: She had a blood pressure of 120/70, pulse 80 and she is afebrile. HEENT: She was anicteric and conjunctivae pink. Mucous membranes moist. NECK: Veins difficult to assess due to obesity. No carotid bruits. Neck supple. CHEST: Clear to auscultation. CARDIOVASCULAR: Regular rate and rhythm. ABDOMEN: Obese. EXTREMITIES: Had no edema. No Homans' sign. Dorsalis pedis pulse 1+ bilaterally. SKIN: Warm and dry. NEUROLOGICAL: Nonfocal. IMPRESSION AND RECOMMENDATIONS: 1. Unstable angina. Recommend cardiac catheterization. 2. Diabetes. 3. Hyperlipidemia. The patient is on a statin drug. 4. Obesity. 5. History of supraventricular tachycardia. 6. Carotid plaque. <ELECTRONICALLY SIGNED> By: Pepe Gottlieb MD, FACC 08/07/18 1046 1056 0058Dacarter Gottlieb MD, FACC /nt
== END 2018-08-06 14:36 | disposition home or self-care (01) | DRG 287 ==
LOC: M.PRE 02:55 → M.2W 04:45
PROVIDERS: ADMIT Internal Medicine
PROC: 4A023N7 Measurement of Cardiac Sampling and Pressure, Left Heart, Percutaneous Approach (ICD-10-PCS; principal; 2018-08-06)
PROC: B2111ZZ Fluoroscopy of Multiple Coronary Arteries using Low Osmolar Contrast (ICD-10-PCS; principal; 2018-08-06)
PROC: B2151ZZ Fluoroscopy of Left Heart using Low Osmolar Contrast (ICD-10-PCS; principal; 2018-08-06)
DX: I25.110 Atherosclerotic heart disease of native coronary artery with unstable angina pectoris (principal); I47.1 Supraventricular tachycardia; Z68.41 Body mass index [BMI] 40.0-44.9, adult; I50.22 Chronic systolic (congestive) heart failure; I11.0 Hypertensive heart disease with heart failure; E78.5 Hyperlipidemia, unspecified; I42.9 Cardiomyopathy, unspecified; I65.29 Occlusion and stenosis of unspecified carotid artery; E11.9 Type 2 diabetes mellitus without complications; E66.01 Morbid (severe) obesity due to excess calories; I48.91 Unspecified atrial fibrillation; J45.909 Unspecified asthma, uncomplicated; Z82.49 Family history of ischemic heart disease and other diseases of the circulatory system; Z95.5 Presence of coronary angioplasty implant and graft; Z79.82 Long term (current) use of aspirin; Z79.84 Long term (current) use of oral hypoglycemic drugs; Z88.8 Allergy status to other drugs, medicaments and biological substances; Z79.899 Other long term (current) drug therapy; Z86.73 Personal history of transient ischemic attack (TIA), and cerebral infarction without residual deficits; Z98.891 History of uterine scar from previous surgery; Z87.891 Personal history of nicotine dependence

== ENCOUNTER → 2019-03-03 | Outpatient (CLI) | payer MEDICARE, MEDICAID ==
[~2019-03-03] VITALS: Ht 157.5 cm; Wt 7.0 kg
[2019-03-03 09:25] VITALS: BP 93/46
[2019-03-03 09:39] LABS: HEMATOCRIT 35.5 % (37.0-47.0); HEMOGLOBIN 12.2 gm/dL (12.0-15.0); MCH 32.1 pg (26.0-34.0); MCHC 34.4 g/dL (28.0-37.0); MCV 93.3 fL (80.0-100.0); MPV 7.3 fl. (7.2-11.1); RBC 3.8 mil/uL (4.20-5.00); WBC 7.2 thou/uL (4.0-11.0)
[2019-03-03 09:52] LABS: APTT 23.9 Seconds (25.0-31.3)
[2019-03-03 09:53] LABS: ANION GAP 8 mmol/L (7-16); BUN 13 mg/dL (7-18); CHLORIDE 104 mmol/L (98-107); CO2 26 mmol/L (21-32); CREATININE 0.8 mg/dL (0.6-1.3); GLUCOSE 141 mg/dL (70-99); POTASSIUM 4.7 mmol/L (3.5-5.1); SODIUM 138 mmol/L (136-145)
[2019-03-03 09:58] LABS: ALBUMIN 3.4 g/dL (3.4-5.0); ALKALINE PHOSPHATASE 72 U/L (46-116); CHOLESTEROL 135 mg/dL (<200); HDL CHOLESTEROL 47 mg/dL (>40); LDL CHOLESTEROL 61 mg/dL (<100); SERUM ASSESSMENT Clear; SGOT 24 U/L (15-37); SGPT 48 U/L (30-65); TC:HDL 2.9 Ratio (Not establshd); TOTAL BILIRUBIN 0.5 mg/dL (<0.1-1.0); TOTAL PROTEIN 6.9 g/dL (6.4-8.2); TRIGLYCERIDE 138 mg/dL (<150); VLDL 28 mg/dL (<40)
[2019-03-03 12:38] VITALS: BP 91/55
[2019-03-03 12:46] VITALS: BP 99/56
[2019-03-03 13:01] VITALS: BP 89/45
[2019-03-03 13:16] VITALS: BP 105/57
[2019-03-03 13:46] VITALS: BP 80/41
--- NOTE | 2019-03-03 18:35 | EKG ---
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
--- NOTE | 2019-03-09 16:55 | CARD ---
[address] [address] CARDIAC CATH REPORT Name: [facility]ORGE SILVER [id number] Admission: 03/03/19 Attend Phys: Sandor Brown MD Discharge: Date of : 82 Report #: [id number] THIS REPORT FOR: //name// APPROVED REPORT Study performed: 03/03/2019 11:18:54 Patient Details Patient Status: Out-Patient Room #: The patient is a 38 year-old female Event Personnel Sandor Brown Radiology Nurse, Madison Almazan RN M[employer]ers [employer] Ac[employer] Associate, Heather Watkins RN Monitor, Joao Zuniga (R) Scrub Procedures Performed Art Access - R femoral artery* , Left Heart Catheterization Risk Factors Family History, Diabetes Previous Procedures/Diagnoses Previous PCI Procedure Narrative The patient was brought electively to the Cardiac Catheterization Laboratory and was prepped and draped in a sterile manner. The right femoral was infiltrated with subcutaneous anesthesia. A [place] 6 FR sheath was inserted into the right femoral artery. Coronary angiography was performed using coronary diagnostic catheters. The left coronary system was accessed and visualized with a Diagnostic JL4 catheter. The left ventricle was accessed and visualized with a Diagnostic JR4 catheter. The patient tolerated the procedure well and there were no complications associated with the procedure. There was no hematoma. Intraoperative Conscious Sedation Sedation start time: 12:01 Case end Time: 12:14 Fentanyl 50 mcg Versed 2 mg Dose: 650.96 mGy Contrast Type and Amount: Visipaque 100 ml Diagnostic Cath [address] [address] CARDIAC CATH REPORT Name: GEORGE SILVERN Room: [facility]#: [id number] Admission: 03/03/19 Attend Phys: Sandor Brown MD Discharge: Date of : 82 Report #: [id number] Left Main Normal and bifurcates into an LAD, intermediate ramus and circumflex coronary arteries. LAD Widely patent stent from the proximal to distal portion. The distal portion the artery beyond the stented portion is narrow in caliber and diffusely diseased. Diagonal 1 Free of significant disease. Circumflex 50% ostial narrowing. 50% narrowing in the midportion after the takeoff of an obtuse marginal branch. 60% narrowing prior to the circumflex PDA. OM1 Widely patent stent in the proximal portion. The mid and distal vessel are free of significant disease. OM2 Small in caliber and free of significant disease. L PDA Free of significant disease. Right Coronary Small and nondominant with a 60% mid stenosis. (Based on prior catheterization) Ramus Small in caliber and diffusely diseased up to 50% narrowed. Left Ventriculography Left Ventriculography was not performed. Hemodynamics The aortic pressure is 115/71 mmHg with a mean of 89 mmHg. The left ventricular pressure is 119/5 mmHg with a mean of mmHg. The left ventricular end diastolic pressure is 20 mmHg. Conclusion 1. Three-vessel coronary artery disease as outlined above. 2. Widely patent stents in the proximal to mid LAD and first obtuse marginal branch. 3. Moderately elevated left ventricular end-diastolic pressure. 4. Moderate narrowing noted in the distal circumflex prior to the PDA branch. Recommendations 1. Continue medical management and aggressive risk factor modification. <ELECTRONICALLY SIGNED> By: Sandor Brown MD, FACC 03/09/19 1655 54 54Sandor Brown MD, FACC /INF
== END | disposition home or self-care (01) ==
LOC: M.CL 08:50
PROVIDERS: Internal Medicine Cardiovascular Disease
DX: I25.110 Atherosclerotic heart disease of native coronary artery with unstable angina pectoris (principal); I11.0 Hypertensive heart disease with heart failure; I50.30 Unspecified diastolic (congestive) heart failure; I42.9 Cardiomyopathy, unspecified; E11.9 Type 2 diabetes mellitus without complications; I48.91 Unspecified atrial fibrillation; J45.909 Unspecified asthma, uncomplicated; Z98.890 Other specified postprocedural states; Z98.51 Tubal ligation status; Z87.891 Personal history of nicotine dependence; Z86.73 Personal history of transient ischemic attack (TIA), and cerebral infarction without residual deficits; Z79.899 Other long term (current) drug therapy; Z79.01 Long term (current) use of anticoagulants; Z88.8 Allergy status to other drugs, medicaments and biological substances; Z79.82 Long term (current) use of aspirin

== ENCOUNTER 2020-04-06 19:01 | Observation (INO) | payer MEDICARE, OTHER, MEDICAID ==
[~2020-04-06] VITALS: Ht 157.5 cm; Wt 110.7 kg
[~2020-04-06 19:01] MED LIST changes: +LIPITOR40 MG PO
[2020-04-06 19:11] VITALS: BP 143/75
[2020-04-06] MEDS ORDERED: HYDROXYZINE PAM25 M1 PO (19:25)
[2020-04-06 19:55] LABS: ABSOLUTE EOSINOPHILS 0.1 thou/uL (0.0-0.7); ABSOLUTE LYMPHOCYTES 2.4 thou/uL (0.8-5.3); ABSOLUTE MONOCYTES 0.6 thou/uL (0.0-1.2); ABSOLUTE NEUTROPHILS 3.4 thou/uL (1.6-8.1); BASOPHILS 0.5 %; EOSINOPHILS 0.9 %; HEMATOCRIT 39.7 % (37.0-47.0); HEMOGLOBIN 13.7 gm/dL (12.0-15.0); LYMPHOCYTES 36.7 %; MCH 32.4 pg (26.0-34.0); MCHC 34.6 g/dL (28.0-37.0); MCV 93.6 fL (80.0-100.0); MONOCYTES 8.8 %; MPV 7.8 fl. (7.2-11.1); NUCLEATED RBCS 0 /100WBC; PLATELET COUNT* 275 thou/uL (150-400); POLYS 53.1 %; RBC 4.24 mil/uL (4.20-5.00); RDW-CV 13.1 % (10.5-14.5); WBC 6.4 thou/uL (4.0-11.0)
[2020-04-06 20:03] LABS: CALCIUM 8.4 mg/dL (8.5-10.1); CREATININE 0.9 mg/dL (0.6-1.3); POTASSIUM 3.9 mmol/L (3.5-5.1)
[2020-04-06 20:07] LABS: URINE BILIRUBIN NEGATIVE (Negative); URINE BLOOD NEGATIVE (Negative); URINE CLARITY CLEAR; URINE COLOR YELLOW; URINE GLUCOSE-RANDOM 3+ (Negative); URINE KETONES NEGATIVE (Negative); URINE LEUKOCYTES-REFLEX NEGATIVE (Negative); URINE NITRITE-REFLEX NEGATIVE (Negative); URINE PROTEIN NEGATIVE (Negative); URINE SPECIFIC GRAVITY >= 1.030 (1.005-1.030); URINE UROBILINOGEN 0.2 E.U./dl (0.2-1.0)
[2020-04-06 20:13] LABS: ALBUMIN 3.4 g/dL (3.4-5.0); MAGNESIUM 1.7 mg/dL (1.8-2.4); TOTAL BILIRUBIN 0.3 mg/dL (<0.1-1.0); TOTAL PROTEIN 7.3 g/dL (6.4-8.2)
[2020-04-06 23:55] VITALS: BP 136/74
[2020-04-07] VITALS (12 sets, daily range): BP systolic 94–141; BP diastolic 47–70
[2020-04-07] MEDS ORDERED: ISOSORBIDE MON120 MG PO (01:41)
[2020-04-07] MEDS ORDERED: OMEPRAZOLE 20 M20 M1 PO (01:43)
[2020-04-07 09:59] LABS: CHOLESTEROL 194 mg/dL (<200); HDL CHOLESTEROL 37 mg/dL (>40); LDL CHOLESTEROL 101 mg/dL (<100); TC:HDL 5.2 Ratio (Not establshd); TRIGLYCERIDE 284 mg/dL (<150); VLDL 57 mg/dL (<40)
[2020-04-07 10:00] LABS: SERUM ASSESSMENT Clear
--- NOTE | 2020-04-07 12:39 | EKG ---
[place] [address] ELECTROCARDIOGRAM REPORT Name: GEORGE SILVERN Room: [address] M.R.#: [id number] Admission: 04/06/20 Attend Phys: Gera Aguilar Discharge: Date of : 82 Date of Service: 04/06/201910 Report #: [id number] THIS REPORT FOR: //name// [facility] ED Test Date: 2020-04-06 Test Time: 19:11:33 Pat Name: GEORGE SILVER Department: Room: [facility] Gender: F Dual Rate Supervisor: HALEIGH : 1980 Requested By: Dede Avelar Order Number: [id number] MD: Gerber Menezes Measurements Intervals [place] Rate: 54 P: 40 GA: 171 QRS: -9 QRSD: 110 T: 34 QT: 481 QTc: 456 Interpretive Statements Sinus rhythm Left ventricular hypertrophy Baseline wander in lead(s) II Compared to ECG 03/03/2019 09:27:12 Left ventricular hypertrophy now present Electronically Signed On 04-07-2020 12:39:13 CDT by Gerber Menezes [email or web address] <ELECTRONICALLY SIGNED> By: Gerber Menezes MD, [facility] 04/07/20 1239 10 10 Gerber Menezes MD, [facility] /EPI
--- NOTE | 2020-04-12 14:03 | CARD ---
[address] [address] CARDIAC CATH REPORT Name: GEORGE SILVER Room: [address] Unique [place]#: [id number] Admission: 04/06/20 Attend Phys: Martita Pérez Discharge: 04/07/20 Date of : 82 Report #: [id number] THIS REPORT FOR: //name// cc: JANETT - No family physician/PCP JANETT - No family physician/PCP ~ ADDENDUM APPROVED REPORT Study performed: 04/07/2020 12:34:49 Patient Details Patient Status: In-Patient Room #: The patient is a 39 year-old female Event Personnel Sandor Brown Validation Specialist, Cortes Bell FIBER DRIER OPERATOR Monitor, Sergio Gaxiola RTR Scrub, Karen Vincent RN Physician Compensation Analyst Procedures Performed Right femoral artery access, Left Heart Cath w/or w/o Coronaries LHC, Hemostasis w/ Mynx Procedure Narrative The patient was brought electively to the Cardiac Catheterization Laboratory and was prepped and draped in a sterile manner. The right femoral was infiltrated with 2% Lidocaine subcutaneous anesthesia. A [place] 6 FR sheath was inserted into the right femoral artery. Coronary angiography was performed using coronary diagnostic catheters. The right coronary system was accessed and visualized with a 6F JR4 catheter. The left coronary system was accessed and visualized with a 6F JL4 catheter. The left ventricle was accessed and visualized with a 6F Pigtail catheter. Left ventricular/Aortic Valve gradient assessed via catheter pullback. Pre-demployment femoral angiogram was performed . Closure device was deployed with a 6 Fr MynxGrip. The patient tolerated the procedure well and there were no complications associated with the procedure. There was no hematoma. Intraoperative Conscious Sedation Sedation start time: 1300 Case end Time: 1309 Fentanyl 25 mcg Versed 2.0 mg Fluoro Time: 1.8 minutes Dose: DAP 41374 cGycm2 847 mGy Contrast Type and Amount: Visipaque [address] [place] [address] CARDIAC CATH REPORT Name: GEORGE SILVER ADELFO Room: [address] [place]#: [id number] Admission: 04/06/20 Attend Phys: Martita Pérez Discharge: 04/07/20 Date of : 82 Report #: [id number] Coronary Angiography The patient's coronary anatomy is left dominant. Diagnostic Cath Left Main The left main coronary artery is normal and trifurcates into a left atrial descending, intermediate ramus and circumflex coronary artery. LAD The LAD has widely patent stents extending from the proximal to distal portion. Distal to the stented portion of the vessel the LAD tapers and is diffusely diseased. Diagonal 1 First diagonal is normal. Circumflex The circumflex exhibits 50% ostial narrowing and 50% narrowing in the midportion. There is 50% narrowing distally. OM1 The first obtuse marginal has a widely patent stent in the proximal portion. The mid and distal vessel are free of significant disease. OM2 The second obtuse marginal branch is small in caliber and free of significant disease. L PDA The left PDA is free of significant disease. Right Coronary A small nondominant right has a 60% mid stenosis. Ramus The intermediate ramus branches moderate in caliber and diffusely moderately plaqued up to 50%. Left Ventriculography Left Ventriculography was not performed. Hemodynamics The aortic pressure is 110/73 mmHg with a mean of 90 mmHg. The left ventricular pressure is 112/5 mmHg with a mean of mmHg. The left ventricular end diastolic pressure is 14 mmHg. Conclusion 1. Three-vessel coronary artery disease as outlined above. 2. Widely patent stents noted in the proximal to distal LAD and proximal portion of the first obtuse marginal branch of the circumflex. 3. Normal left ventricular end-diastolic pressure 4. Moderate nonocclusive disease noted in the circumflex as outlined above[place] [address] CARDIAC CATH REPORT Name: GEORGE SILVER ADELFO Room: [address] Unique [place]#: [id number] Admission: 04/06/20 Attend Phys: Martita Pérez Discharge: 04/07/20 Date of : 82 Report #: [id number] 1. Continue medical management and aggressive risk factor modification. <ELECTRONICALLY SIGNED> By: Sandor Brown MD, FACC 04/12/201401 01 140Michaered Brown MD, FAC /INF
== END 2020-04-07 18:00 | disposition home or self-care (01) ==
LOC: M.ERS 19:01 → M.TBA-ER 20:48 → M.2W 20:48
PROVIDERS: Emergency Medicine; Registered Nurse; ADMIT Internal Medicine; ATTEND Internal Medicine
DX: R07.89 Other chest pain (principal); I25.10 Atherosclerotic heart disease of native coronary artery without angina pectoris; E11.9 Type 2 diabetes mellitus without complications; I10 Essential (primary) hypertension; E66.01 Morbid (severe) obesity due to excess calories; E78.5 Hyperlipidemia, unspecified; J45.909 Unspecified asthma, uncomplicated; I48.91 Unspecified atrial fibrillation; Z68.41 Body mass index [BMI] 40.0-44.9, adult; Z87.891 Personal history of nicotine dependence; Z20.828 Contact with and (suspected) exposure to other viral communicable diseases; Z86.19 Personal history of other infectious and parasitic diseases; Z79.82 Long term (current) use of aspirin; Z95.818 Presence of other cardiac implants and grafts